=== PATIENT | female | born 1965 ===

== ENCOUNTER 2017-10-01 06:35 | Day surgery (SDC) | payer OTHER ==
[~2017-10-01 06:35] MED LIST: Buffered Lidocaine 0.9% SYRIN* 5 ML/SYR SYRINGE INTRADERM ONE; Sodium Citrate/Citric Acid* 15 ML UDC PO ONE
[2017-10-01] MEDS ORDERED: Sodium Citrate/Citric Acid* 15 ML UDC ONE (06:44)
[2017-10-01] MEDS ORDERED: Clindamycin 900 MG IVPREMIX(* 900 MG/50 ML SDV IV ONE (06:45)
[2017-10-01 06:56] VITALS: BP 90/64
[2017-10-01] MEDS ORDERED: Bupivacaine 0.5%* 50 ML VIAL ONE (07:11)
[2017-10-01] MEDS ORDERED: Bupivacaine 0.25% SDV* 30 ML ONE (07:11)
[2017-10-01] MEDS ORDERED: Midazolam* 1 MG/ML 2 ML VIAL (2 MG) ONE (07:32)
[2017-10-01] MEDS ORDERED: fentaNYL* 50 MCG/ML 2 ML VIAL (100 MCG VIAL) ONE (07:32)
[2017-10-01] MEDS ORDERED: Propofol* 10 MG/ML 20 ML BTL IV PUSH ONE (08:13)
[2017-10-01] MEDS ORDERED: EPINEPHrine AMP 1 MG/ML ONE (08:13)
[2017-10-01] MEDS ORDERED: Naloxone* 0.4 MG/ML 1 ML VIAL IV PRN (08:35)
--- NOTE | 2017-10-02 21:46 | OP ---
OPERATIVE REPORT: DATE OF OPERATION: 10/01/17 DATE OF : 61 SURGEON: Salazar Rivers MD. CLARIFIER: ALONSO Bella. As certified pharmacist assistant was needed for the entirety of the procedure to aid in positioning of the arm and retrac tion. ANESTHESIOLOGIST: Dr. Stewart. ANESTHESIA: Axillary block plus MAC. PRE-OP DIAGNOSES: 1. Right stage 3 basal joint arthritis. 2. Right trigger thumb. POST-OP DIAGNOSES: 1. Right stage 3 basal joint arthritis. 2. Right trigger thumb. 3. Right thumb A1 minh nodule. OPERATIVE PROCEDURE: 1. Right thumb carpometacarpal arthroplasty with trapeziectomy. 2. Right split distally based flexor carpi radialis tendon transfer for thumb suspension and tendon interposition. 3. Right trigger thumb A1 minh release. 4. Excision of right thumb A1 minh mass. 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 She does have electrodiagnostic severe carpal tunnel syndrome and some ulnar neuropathy as well; however, that is asymptomatic. What bothers her i s her thumb base arthritis and the trigger thumb. I have given her an injection for the trigger thum b which helped substantially; however, the pain and discomfort have come back. We talked about risks and benefits. She wanted to proceed with surgery. ESTIMATED BLOOD LOSS: 2 mL. COMPLICATIONS: None. FINDINGS: As expected. DESCRIPTION OF PROCEDURE: Lisa was seen in the preoperative holding area. The correct side, site, and procedure were identified. We came back to the operating room where an axillary block was perfo rmed. The arm was prepped and draped in the usual fashion. A time-out was performed. The arm was exsanguinated with the Esmarch and the tourniquet inflated to 250 mmHg. I began by making a transverse 1-cm incision in right thumb MP joint flexion crease. Dissection was bluntly carried d own to the A1 minh area. There was a very large nodule, which was probably some nodular tenosynovi tis coming off the A1 minh. I went ahead and ellipsed this out and it was sent as a specimen. I then completed the release of the A1 minh distally and proximally with the tenotomy scissors. On ce there was absolutely no compression on the nerve, I irrigated that wound out and closed it with so me 4-0 nylon suture. I then made a 2- to 3-cm longitudinal incision just dorsal to the first dorsal compartment tendons. Dissection was carried down longitudinally to preserve the traversing sensory nerves. The radial art negrita was mobilized and retracted out of the way. I did have to tie off the perforating branch. The v enous plexus was cauterized. The knife was used to open up the capsule and subperiosteal and capsula r flaps were raised exposing the entirety of the trapezium. The rongeur was then used to excise the trapezium. With the trapezium completely excised, I examined the scaphotrapezoid joint. This looked good. I then raised subperiosteal flap off the base of the thumb metacarpal. I used sequentially l Nitro[employer] drill bits to make a drill hole from the dorsal radial aspect of the thumb metacarpal base down and exiting out the palmar ulnar aspect of the articular surface. I then made a 1-cm transverse incision over the distal aspect of the FCR tendon just proximal to the wrist flexion crease. The sheath was released. The tendon was delivered up into the wound. It was split longitudinally with a 15 blade and a 26-gauge wire was passed into the tendon split. I then ma de 2 additional transverse incisions, each about 7 or 8 cm proximal to the last. The tendon sheath w as released along the entirety of the tendon. A Sarah clamp was used to pull the 26-gauge wire from the distal incision sequentially into each of the 2 proximal incisions, releasing the half of the ten don at the musculotendinous junction. I then debrided off the muscular remnants of the tendon and tu bularized and secured the free end of the tendon with a 3-0 Ethibond suture. The free end of the ten don was passed down to the thumb base wound using two 26-gauge wires as shuttles. It was brought thr ough the bony tunnel back around the intact limb of the tendon and then appropriate tension was set, as a dpgrbm-in-agcid 3-0 Ethibond suture was used to secure first all 3 limbs of the tendon transfer and then 2 additional figure-of- eight 3-0 Ethibond sutures were used to sew intact limb to intact li mb. With the tendon transfer complete, I went ahead and rolled the rest of the tendon into a ball. This was placed as an interposition between the distal end of the scaphoid and the proximal metacarpal bas e. The wound was copiously irrigated out. The capsule was closed with 3-0 Ethibond. The skin was cl osed with 4-0 nylon suture at all of the incisions. The wounds were dressed with Xeroform, 4x4's, st erile Webril, and a thumb spica splint was applied leaving the IP joint free. Tourniquet was deflated and she was woken up and taken to the recovery room in stable condition. [id number]/[facility] #: [id number]
== END 2017-10-01 09:51 | disposition home or self-care (01) ==
LOC: OREAST 06:35
PROVIDERS: ATTEND Orthopaedic Surgery Hand Surgery
DX: M18.11 Unilateral primary osteoarthritis of first carpometacarpal joint, right hand (principal); M65.311 Trigger thumb, right thumb; E06.3 Autoimmune thyroiditis; F41.9 Anxiety disorder, unspecified; F17.210 Nicotine dependence, cigarettes, uncomplicated; G43.909 Migraine, unspecified, not intractable, without status migrainosus
CPT/HCPCS: 88304; 88311; A9270-GY; J0171; J2250; J2704; J3010

== ENCOUNTER 2018-05-13 06:47 | Day surgery (SDC) | payer OTHER ==
[~2018-05-13 06:47] MED LIST changes: +Famotidine IV* 10 MG/ML 2 ML (20 mg) IV ONE; +Famotidine IV* 10 MG/ML 2 ML (20 mg) ONE; -Sodium Citrate/Citric Acid* 15 ML UDC PO ONE
[2018-05-13] MEDS ORDERED: Bupivacaine 0.25% SDV PF* 10 ML VIAL INJ ONE ×2 (07:23→07:24)
[2018-05-13] MEDS ORDERED: Midazolam* 1 MG/ML 5 ML VIAL (5 MG) ONE (08:07)
[2018-05-13] MEDS ORDERED: fentaNYL* 50 MCG/ML 2 ML VIAL (100 MCG VIAL) ONE (08:07)
[2018-05-13] MEDS ORDERED: Ondansetron INJ* 2 MG/ML VIAL ONE (08:34)
[2018-05-13] MEDS ORDERED: Propofol* 10 MG/ML 20 ML BTL ONE (08:34)
[2018-05-13] MEDS ORDERED: Ketorolac INJ* 30 MG/ML 1 ML VIAL ONE (08:34)
[2018-05-13] MEDS ORDERED: Lidocaine 2% PF * 5 ML VIAL ONE (08:34)
[2018-05-13] MEDS ORDERED: Naloxone* 0.4 MG/ML 1 ML VIAL IV PRN (08:44)
[2018-05-13] MEDS ORDERED: Acetaminophen TAB* 325 MG PO PRN (08:44)
[2018-05-13] MEDS ORDERED: DiMENhydriNATE IV* 50 MG/ML VIAL IV PUSH PRN (08:44)
[2018-05-13 09:06] VITALS: BP 101/81
--- NOTE | 2018-05-13 23:13 | OP ---
DATE OF OPERATION: 05/13/18 - [facility] DATE OF : 61 SURGEON: Salazar Rivers MD. HOLLOW HANDLE KNIFE ASSEMBLER: ALONSO Bella ANESTHESIOLOGIST: Dr. Escobedo. ANESTHESIA: Local MAC. PRE-OP DIAGNOSES: 1. Right de Quervain disease. 2. Right thumb prominent deep suture knot. POST-OP DIAGNOSES: 1. Right de Quervain disease. 2. Right thumb prominent deep suture knot. PROCEDURES PERFORMED: 1. Right de Quervain's release. 2. Removal of right thumb metacarpal base, retained deep suture knot. INDICATIONS: Lisa has had chronic de Quervain's. She has had injections over the years. Pain has always recurred. Also, I did the first carpometacarpal arthroplasty sometime back. One of the distal Ethibond sutures is prominent. We decided to remove that as well. ESTIMATED BLOOD LOSS: 2 mL. COMPLICATIONS: None. FINDINGS: See above and below. DESCRIPTION OF PROCEDURE: Lisa was seen in the preoperative holding area. The correct side, site, and procedure were identified. We came back to the operating room and the arm was prepped and draped in the usual fashion. A time- out was performed. We exsanguinated the arm with the Esmarch and the tourniquet was inflated to 250 mmHg. I had already infiltrated the operative area with 0.25% plain Marcaine. I then made a 1 to 2 cm transverse wound just proximal to the radial styloid. Full- thickness flaps were bluntly raised off of the first dorsal compartment tendon sheath and the sensory nerve was retracted dorsally. Along the dorsal margin, I opened the first dorsal compartment tendon sheath in line with the tendons. This was completed distally and approximated with a tenotomy scissors. There was quite a bit of tenosynovitis. This was excised. The tendon sheath had developed some nodular tenosynovitis and I trimmed all this back to a nice thin tendon sheath edge. Once the release was completed proximally and distally, we turned our attention to the thumb base. I made a 1-cm longitudinal wound over the metacarpal base over the suture knot. Dissection was carried down sharply and then the suture knot was identified. I ellipsed it out and excised it. A full suture tail was excised with a rongeur. The wound was irrigated out. The radial styloid wound was closed with 4-0 Monocryl and Steri-Strips. The metacarpal base wound was closed with a 4-0 nylon suture. Soft dressings were applied. She was taken to the recovery room in stable condition. [id number]/[facility] #: [id number] MTDD
== END 2018-05-13 09:23 | disposition home or self-care (01) ==
LOC: OREAST 06:47
PROVIDERS: ATTEND Orthopaedic Surgery Hand Surgery
DX: M65.4 Radial styloid tenosynovitis [de Quervain] (principal); M79.5 Residual foreign body in soft tissue; Z87.891 Personal history of nicotine dependence; Z88.0 Allergy status to penicillin; F41.9 Anxiety disorder, unspecified
CPT/HCPCS: J1885; J2250; J2405; J2704; J3010; J3490